=== PATIENT | male | born 1950 | race Caucasian/White ===

== ENCOUNTER → 2017-02-19 | Outpatient (CLI) | payer OTHER | LOC: ULTRA 09:00 | DX: R10.9 Unspecified abdominal pain (principal); R11.2 Nausea with vomiting, unspecified ==

== ENCOUNTER → 2017-02-23 | Outpatient (CLI) | payer OTHER ==
[~2017-02-23] VITALS: Ht 180.3 cm; Wt 117.9 kg
[~2017-02-23] MED LIST: ALLOPURINOL 10100 M1 PO; ASA5UEC PO; BYSTOLIC 5 MG5 M1 PO; CO Q-10100 MG PO; DOXAZOSIN MESYLA4 MG PO; FISH OIL 1,001000 M2 PO; LOTREL 5-10 MG1 EACH PO; PRAVACHOL40 MG PO; SERTRALINE HCL50 MG PO
--- NOTE | ~2017-02-23 | P ---
[facility] [place] [address] PROCEDURE REPORT Name: LUIS PANDEY Room #: REG [facility]#: [id number] Admission: 02/23/17 Attend Phys: James Sheffield MD Discharge: Date of : 52 Report #: [id number] THIS REPORT FOR: //name// CC: James Flores MD BRIEF HISTORY: The patient is a 66-year-old male with recent nausea, vomiting, epigastric pain and chest pain. Symptoms have persisted. PREOPERATIVE DIAGNOSIS: Epigastric pain and chest pain. POSTOPERATIVE DIAGNOSES: 1. Grade B esophagitis. 2. Diffuse gastritis. 3. Small hiatus hernia. MEDICATIONS: Deep sedation with propofol per anesthesia. SPECIMEN: Biopsies of gastritis. ESTIMATED BLOOD LOSS: 3 mL. PROCEDURE: EGD with biopsy. FINDINGS: Prior to propofol sedation, procedure of upper endoscopy was discussed with the patient as well as potential risks and its complications. He indicates he understands and desires to proceed. DESCRIPTION OF PROCEDURE: With the patient in left lateral decubitus position, the [email or web address] video endoscope was inserted in the cervical esophagus under direct vision without difficulty. Examination of this organ through its entire length revealed normal esophageal mucosa down to the squamocolumnar junction. The squamocolumnar junction was inspected and he was noted to have multiple erosions consistent with grade B esophagitis. It was difficult to determine whether these are result of vomiting or whether these actually represent esophagitis. Intermittently, small hiatus hernia was seen. The scope was advanced into the stomach, was examined on end view as well as retroflexed views. There was a diffuse gastritis to a moderate degree. No ulcers or erosions were seen. No retained materials were seen. Upon retroflexion, no lesions were seen in the cardia of stomach. The pylorus, duodenal bulb, and postbulbar duodenal sweep were all inspected and noted to be within normal limits. At that point, the scope was slowly withdrawn and careful circumferential views were obtained. Biopsies obtained of the gastritis. The patient tolerated the procedure well. CONDITION OF THE PATIENT UPON DISCHARGE: Following procedure, the patient drowsy, arousable, and conversant and will be discharged to home when fully [facility] [address] [place] [address] PROCEDURE REPORT Name: LUIS PANDEY Jude [id number] Admission: 02/23/17 Attend Phys: James Sheffield MD Discharge: Date of : 52 Report #: [id number] ambulatory. INSTRUCTIONS TO THE PATIENT AND FAMILY AT THE TIME OF DISCHARGE: The patient had a lot of nausea and vomiting last week and he does have an esophagitis. This may be a result of his vomiting. I cannot entirely exclude reflux disease. We will have him take pantoprazole 40 mg daily for 4 weeks. If symptoms persist, he may use it on a regular basis or as needed after 4 weeks. I do not see any significant ulcer disease or other lesions with regards to his pain. Some of his pain may be musculoskeletal related to his nausea and vomiting. He will return to the care of Dr. Scott Flores, return to see me as needed. <ELECTRONICALLY SIGNED> By: James Sheffield MD 02/23/17 1523 [id number] James Sheffield MD /nt
--- NOTE | ~2017-02-23 | S ---
[facility] [place] [address] SURGICAL PATH RPT PROCEDURE Name: ALEX REBOLLEDO Room #: REG CLI M..#: [id number] Admission: 02/23/17 Date of : 52 Discharge: Report #: [id number] Path Case #: [id number] PATHOLOGY REPORT COLLECTION DATE: 02/23/2017 RECEIVED DATE: 02/23/2017 SUBMITTING PHYS: Dr. James Sheffield OTHER PHYS: Dr. Scott Flores SPECIMEN(S) RECEIVED: A.Bx of gastric for gastritis * * * * * * * * * * * * FINAL DIAGNOSIS: Gastric mucosa, gastritis, endoscopic biopsy: - Mild chronic inflammation. - Negative for intestinal metaplasia or atrophy. - Negative for Helicobacter pylori. COMMENT: Helicobacter pylori immunohistochemical stain performed on block A1-negative (IUV:mgr; 02/26/2017) PATHOLOGIST: Jazmine Duval M.D. REPORT ELECTRONICALLY SIGNED BY: Jazmine Duval M.D. DATE/TIME: 02/26/2017 16:57 * * * * * * * * * * * * GROSS PATHOLOGY: Received in formalin labeled "Alex Rebolledo BX of gastritis," are six segments of mcfadden soft tissue measuring 0.8 x 0.5 x 0.2 cm in aggregate dimensions and ranging from 0.2 to 0.4 cm in maximum dimension. The specimen is submitted entirely in cassette A1. (TSD; 02/23/2017) CLINICAL HISTORY: Pre-OP DX: Abdominal pain, vomiting Post-OP DX: Esophagitis, small hiatus hernia, gastritis INITIAL CPT CODE(S): A; 78875, 66350 Professional services performed by [facility] at [facility] [address], [place] [address] [facility] [address] [place] [address] SURGICAL PATH RPT PROCEDURE Name: ALEX REBOLLEDO Room #: REG [facility].#: [id number] Admission: 02/23/17 Date of : 52 Discharge: Report #: [id number] Path Case #: [id number] [facility] at [address] [place] [address], [facility] [address] [address]. [facility] [address] [place] [address] PHONE: [phone] DIRECTOR: Obdulio Ortez M.D. * * * END OF REPORT * * *
== END | disposition home or self-care (01) ==
LOC: GI 02-21 10:32
DX: K29.70 Gastritis, unspecified, without bleeding (principal); K20.8 Other esophagitis; K44.9 Diaphragmatic hernia without obstruction or gangrene; I10 Essential (primary) hypertension; E78.00 Pure hypercholesterolemia, unspecified; F32.89 Other specified depressive episodes; Z87.891 Personal history of nicotine dependence; Z98.890 Other specified postprocedural states; Z79.899 Other long term (current) drug therapy; Z79.82 Long term (current) use of aspirin
CPT/HCPCS: 62110

== ENCOUNTER → 2017-03-01 | Outpatient (CLI) | payer OTHER | LOC: SLEEPLAB 09:16 | DX: G47.33 Obstructive sleep apnea (adult) (pediatric) (principal); G47.19 Other hypersomnia ==

== ENCOUNTER → 2019-08-12 | Outpatient (CLI) | payer OTHER | LOC: SJCVC 10:08 | DX: I48.0 Paroxysmal atrial fibrillation (principal); I10 Essential (primary) hypertension; E78.00 Pure hypercholesterolemia, unspecified; Z96.651 Presence of right artificial knee joint; Z79.899 Other long term (current) drug therapy; Z87.891 Personal history of nicotine dependence ==

== ENCOUNTER → 2019-08-13 | Outpatient (CLI) | payer OTHER | LOC: CAT 10:38 | DX: Z13.6 Encounter for screening for cardiovascular disorders (principal); I25.10 Atherosclerotic heart disease of native coronary artery without angina pectoris; E78.00 Pure hypercholesterolemia, unspecified ==

== ENCOUNTER → 2020-05-12 | Outpatient (CLI) | payer OTHER | LOC: SJCVCIMAG 09:22 | PROVIDERS: ATTEND Internal Medicine Cardiovascular Disease | DX: I10 Essential (primary) hypertension (principal); E78.5 Hyperlipidemia, unspecified; I48.0 Paroxysmal atrial fibrillation; Z79.899 Other long term (current) drug therapy ==

== ENCOUNTER → 2021-02-24 | Outpatient (CLI) | payer OTHER | LOC: SJCVC 09:41 | PROVIDERS: ATTEND Internal Medicine Cardiovascular Disease | DX: R94.31 Abnormal electrocardiogram [ECG] [EKG] (principal); I11.9 Hypertensive heart disease without heart failure; R93.1 Abnormal findings on diagnostic imaging of heart and coronary circulation; E78.00 Pure hypercholesterolemia, unspecified; I48.0 Paroxysmal atrial fibrillation; G47.33 Obstructive sleep apnea (adult) (pediatric); Z99.89 Dependence on other enabling machines and devices; Z79.899 Other long term (current) drug therapy ==